=== PATIENT | female | born 1950 | race Caucasian/White ===

== ENCOUNTER 2017-11-10 15:49 | Inpatient (IN) | payer OTHER ==
[~2017-11-10] VITALS: Ht 157.5 cm; Wt 59.0 kg
[2017-11-12] MEDS ORDERED: LOSARTAN POTAS100 MG PO (14:29)
[2017-11-12] MEDS ORDERED: LEVO-T50 MCG PO (14:29)
[2017-11-12] MEDS ORDERED: ZOCOR40 MG PO (14:29)
== END 2017-11-20 12:58 | disposition home or self-care (01) | DRG 331 ==
LOC: SURH 11-17 05:45 → O/R 11-17 05:45 → SURH 11-17 08:45
PROVIDERS: Colon & Rectal Surgery
PROC: 0DJD8ZZ Inspection of Lower Intestinal Tract, Via Natural or Artificial Opening Endoscopic (ICD-10-PCS; 2017-11-17)
PROC: 0DTN4ZZ Resection of Sigmoid Colon, Percutaneous Endoscopic Approach (ICD-10-PCS; principal; 2017-11-17 08:45)
DX: K57.32 Diverticulitis of large intestine without perforation or abscess without bleeding (principal); I10 Essential (primary) hypertension; E03.8 Other specified hypothyroidism; E78.00 Pure hypercholesterolemia, unspecified

== ENCOUNTER 2018-12-23 06:40 | Day surgery (SDC) | payer OTHER ==
[~2018-12-23 06:40] MED LIST: LEVO-T50 MCG PO; LOSARTAN POTAS100 MG PO; ZOCOR40 MG PO
== END 2018-12-23 14:45 | disposition home or self-care (01) ==
LOC: AMB-ENDOS 06:40
DX: K57.32 Diverticulitis of large intestine without perforation or abscess without bleeding (principal); K64.1 Second degree hemorrhoids